=== PATIENT | male | born 1985 | race Caucasian/White ===

== ENCOUNTER 2020-06-27 10:40 | Inpatient (IN) | payer MEDICAID ==
[~2020-06-27] VITALS: Ht 175.3 cm; Wt 81.0 kg
[2020-06-27] VITALS (8 sets, daily range): BP systolic 104–134; BP diastolic 60–98
[2020-06-27] MEDS ORDERED: ZOLPIDEM TARTRATE 10 MG TABLET PO PRN (11:45)
[2020-06-27] MEDS ORDERED: HALOPERIDOL 5 MG TABLET PO PRN (11:45)
[2020-06-27] MEDS ORDERED: CloNIDine HCL 0.1 MG TABLET PO PRN (14:45)
[2020-06-27] MEDS ORDERED: MAG HYDROX/AL HYDROX/SIMETH ES 30 ML SUSPENSION UDCUP PO PRN (14:45)
[2020-06-27] MEDS ORDERED: IBUPROFEN 600 MG TABLET PO PRN (14:45)
[2020-06-27] MEDS ORDERED: HydrOXYzine PAMOATE 50 MG CAPSULE PO PRN (14:45)
[2020-06-27] MEDS ORDERED: INFLUENZA VIRUS VACCINE QVS 2020-21 (6MO+)/PF 60 MCG/0.5 ML SYRINGE IM ONE (16:00)
[2020-06-27] MEDS: CloNIDine HCL 0.1 MG TABLET PO SCH ×2 (16:55→21:12)
[2020-06-28] VITALS (7 sets, daily range): BP systolic 109–128; BP diastolic 66–73
[2020-06-28] MEDS: CloNIDine HCL 0.1 MG TABLET PO SCH ×4 (06:17→21:38)
[2020-06-28] MEDS ORDERED: ALBUTEROL SULFATE HFA 90 MCG/PUFF 8 GM INHALER IH PRN (08:45)
[2020-06-28] MEDS ORDERED: BACITRACIN 28 GM OINTMENT TP PRN (08:45)
[2020-06-28] MEDS ORDERED: MAGNESIUM HYDROXIDE SUSPENSION 30 ML UDCUP PO PRN (08:45)
[2020-06-28] MEDS ORDERED: PETROLATUM,WHITE 28 GM JELLY TP PRN (08:45)
[2020-06-28] MEDS ORDERED: DOCUSATE SODIUM 100 MG CAPSULE PO PRN (08:45)
[2020-06-28] MEDS ORDERED: OMEPRAZOLE 20 MG CAPSULE PO PRN (08:45)
[2020-06-28] MEDS ORDERED: ACETAMINOPHEN 325 MG TABLET PO PRN (08:45)
[2020-06-28] MEDS ORDERED: MAG HYDROX/AL HYDROX/SIMETH ES 30 ML SUSPENSION UDCUP PO PRN (08:45)
[2020-06-28] MEDS ORDERED: IBUPROFEN 600 MG TABLET PO PRN (08:45)
[2020-06-28] MEDS ORDERED: ONDANSETRON HCL 4 MG TABLET PO PRN (08:45)
[2020-06-28] MEDS ORDERED: CloNIDine HCL 0.1 MG TABLET PO PRN (08:45)
[2020-06-28] MEDS ORDERED: LOPERAMIDE HCL 2 MG CAPSULE PO PRN (08:45)
[2020-06-28] MEDS ORDERED: BENZOCAINE/MENTHOL LOZENGE PO PRN (08:45)
[2020-06-28] MEDS: LORazepam 2 MG TABLET PO PRN (12:32)
[2020-06-29 00:30] VITALS: BP 126/65
[2020-06-29] MEDS: CloNIDine HCL 0.1 MG TABLET PO SCH ×4 (06:05→21:39)
[2020-06-29 08:24] VITALS: BP 134/65
[2020-06-29] MEDS: LORazepam 2 MG TABLET PO PRN ×2 (10:16→14:17)
[2020-06-29 14:38] VITALS: BP 125/65
[2020-06-29 16:12] VITALS: BP 100/67
[2020-06-29] MEDS: OLANZapine 5 MG TABLET PO SCH (21:39)
[2020-06-30] MEDS: CloNIDine HCL 0.1 MG TABLET PO SCH ×4 (05:54→20:01)
[2020-06-30 06:49] VITALS: BP 121/71
[2020-06-30 08:28] VITALS: BP 106/62
[2020-06-30] MEDS: LORazepam 2 MG TABLET PO PRN ×2 (11:16→16:44)
[2020-06-30 12:50] VITALS: BP 127/72
[2020-06-30 14:40] VITALS: BP 126/72
[2020-06-30 16:10] VITALS: BP 108/63
[2020-06-30] MEDS: OLANZapine 5 MG TABLET PO SCH (20:01)
[2020-07-01 01:01] VITALS: BP 108/64
[2020-07-01] MEDS: CloNIDine HCL 0.1 MG TABLET PO SCH ×2 (06:01→12:44)
[2020-07-01 08:13] VITALS: BP 109/63
[2020-07-01] MEDS: LORazepam 2 MG TABLET PO PRN (12:51)
[2020-07-01] MEDS ORDERED: OLAN5TAB2 PO (13:20)
== END 2020-07-01 16:37 | disposition home or self-care (01) | DRG 750 ==
LOC: B2S 13:46 → UNDOADMIN 13:46 → B2S 14:36
PROVIDERS: ADMIT Psychiatry & Neurology Psychiatry; ATTEND Psychiatry & Neurology Psychiatry
DX: F25.9 Schizoaffective disorder, unspecified (principal); F10.10 Alcohol abuse, uncomplicated; F15.10 Other stimulant abuse, uncomplicated; F41.9 Anxiety disorder, unspecified; G47.00 Insomnia, unspecified; I10 Essential (primary) hypertension; Y90.9 Presence of alcohol in blood, level not specified
CPT/HCPCS: Z7610

== ENCOUNTER 2020-10-31 14:11 | Inpatient (IN) | payer MEDICAID, OTHER ==
[~2020-10-31] VITALS: Ht 175.3 cm; Wt 71.2 kg
[~2020-10-31 14:11] MED LIST: OLAN5TAB52 PO
[2020-10-31 16:47] LABS: BASOPHILS % (AUTO) 0.2 % (0.0-2.0); EOSINOPHILS % (AUTO) 1.7 % (1.0-6.0); HEMATOCRIT 36.9 % (41-53); HEMOGLOBIN 12.4 g/dL (13.5-17.5); LYMPHOCYTES # (AUTO) 1.6 K/uL (1.0-4.8); LYMPHOCYTES % (AUTO) 32.3 % (22.0-44.0); MEAN CORPUSCULAR HEMOGLOBIN 29.1 pg (26.0-34.0); MEAN CORPUSCULAR HGB CONC 33.7 G/dL (31.0-37.0); MEAN CORPUSCULAR VOLUME 87 fL (80-100); MONOCYTES # (AUTO) 0.6 K/uL (0.1-1.0); MONOCYTES % (AUTO) 12.2 % (2.0-9.0); NEUTROPHILS # (AUTO) 2.6 K/uL (1.8-7.7); NEUTROPHILS % (AUTO) 53.6 % (40.0-70.0); PLATELET COUNT (AUTO) 256 K/uL (150-450); RED BLOOD CELL COUNT(AUTO) 4.27 MIL/uL (4.50-5.90); RED CELL DISTRIBUTION WIDTH 15.4 % (11.5-14.5)
[2020-10-31 16:59] LABS: ANION GAP 4 mmol/L (8-16); CALCIUM, TOTAL 8.5 mg/dL (8.8-10.5); CARBON DIOXIDE 31 mmol/L (22-29); CHLORIDE 105 mmol/L (98-107); CREATININE 1.03 mg/dL (0.60-1.30); GLOMERULAR FILTR. RATE CALC > 60 mL/min (>60); GLUCOSE,RANDOM 96 mg/dL (70-110); POTASSIUM 4.1 mmol/L (3.5-5.1); SODIUM SERUM 140 mmol/L (136-145); UREA NITROGEN, BLOOD 10 mg/dL (7-18)
[2020-10-31 17:05] LABS: ALANINE AMINOTRANSFERASE 71 U/L (12-78); ALBUMIN 3.6 g/dL (3.4-5.0); ALKALINE PHOSPHATASE 65 U/L (46-116); ASPARTATE AMINOTRANSFERASE 44 U/L (15-37); BILIRUBIN,TOTAL 0.3 mg/dL (0.1-1.0); TOTAL PROTEIN, SERUM 6.9 g/dL (6.4-8.2)
[2020-10-31] MEDS ORDERED: HALOPERIDOL 5 MG TABLET PO PRN (17:45)
[2020-10-31] MEDS ORDERED: ZOLPIDEM TARTRATE 10 MG TABLET PO PRN (17:45)
[2020-10-31 19:31] LABS: COVID AG,FIA SOURCE NASOPHARYNGEAL
[2020-10-31 21:53] VITALS: BP 124/90
[2020-11-01] VITALS (9 sets, daily range): BP systolic 117–141; BP diastolic 70–89
[2020-11-01] MEDS: LORazepam 2 MG TABLET PO PRN (08:33)
[2020-11-01] MEDS ORDERED: CloNIDine HCL 0.1 MG TABLET PO PRN (09:45)
[2020-11-01] MEDS ORDERED: IBUPROFEN 600 MG TABLET PO PRN (09:45)
[2020-11-01] MEDS ORDERED: MAG HYDROX/AL HYDROX/SIMETH ES 30 ML SUSPENSION UDCUP PO PRN (09:45)
[2020-11-01] MEDS ORDERED: HydrOXYzine PAMOATE 50 MG CAPSULE PO PRN (09:45)
[2020-11-01] MEDS: ESCITALOPRAM OXALATE 10 MG TABLET PO SCH (11:22)
[2020-11-01] MEDS: CloNIDine HCL 0.1 MG TABLET PO SCH ×3 (11:57→21:47)
[2020-11-01] MEDS: RisperiDONE 2 MG TABLET PO SCH (16:31)
[2020-11-02] VITALS (7 sets, daily range): BP systolic 118–156; BP diastolic 79–86
[2020-11-02] MEDS: CloNIDine HCL 0.1 MG TABLET PO SCH ×4 (06:14→22:16)
[2020-11-02] MEDS: ESCITALOPRAM OXALATE 10 MG TABLET PO SCH (10:20)
[2020-11-02] MEDS: RisperiDONE 2 MG TABLET PO SCH ×3 (10:20→16:21)
[2020-11-02] MEDS: LORazepam 2 MG TABLET PO PRN (19:50)
[2020-11-03] VITALS (7 sets, daily range): BP systolic 129–156; BP diastolic 73–84
[2020-11-03] MEDS: CloNIDine HCL 0.1 MG TABLET PO SCH ×4 (05:52→21:50)
[2020-11-03] MEDS: RisperiDONE 2 MG TABLET PO SCH ×2 (09:11→16:10)
[2020-11-03] MEDS: ESCITALOPRAM OXALATE 10 MG TABLET PO SCH (09:11)
[2020-11-03] MEDS: LORazepam 2 MG TABLET PO PRN ×3 (09:20→18:18)
[2020-11-04 06:05] VITALS: BP 129/77
[2020-11-04] MEDS: CloNIDine HCL 0.1 MG TABLET PO SCH ×4 (06:09→21:44)
[2020-11-04] MEDS: LORazepam 2 MG TABLET PO PRN ×4 (06:10→18:55)
[2020-11-04] MEDS: RisperiDONE 2 MG TABLET PO SCH ×2 (08:21→16:41)
[2020-11-04] MEDS: ESCITALOPRAM OXALATE 10 MG TABLET PO SCH (08:21)
[2020-11-04 08:25] VITALS: BP 122/74
[2020-11-04] MEDS: GABAPENTIN 300 MG CAPSULE PO SCH ×3 (10:09→16:40)
[2020-11-04] MEDS ORDERED: DOCUSATE SODIUM 100 MG CAPSULE PO PRN (12:00)
[2020-11-04] MEDS ORDERED: MAGNESIUM HYDROXIDE SUSPENSION 30 ML UDCUP PO PRN (12:00)
[2020-11-04] MEDS ORDERED: IBUPROFEN 400 MG TABLET PO PRN (12:00)
[2020-11-04] MEDS ORDERED: ALBUTEROL SULFATE HFA 90 MCG/PUFF 8 GM INHALER IH PRN (12:00)
[2020-11-04] MEDS ORDERED: MAG HYDROX/AL HYDROX/SIMETH ES 30 ML SUSPENSION UDCUP PO PRN (12:00)
[2020-11-04] MEDS ORDERED: ONDANSETRON HCL 4 MG TABLET PO PRN (12:00)
[2020-11-04] MEDS ORDERED: CloNIDine HCL 0.1 MG TABLET PO PRN (12:00)
[2020-11-04] MEDS ORDERED: LOPERAMIDE HCL 2 MG CAPSULE PO PRN (12:00)
[2020-11-04] MEDS ORDERED: NICOTINE 14 MG/24 HOUR PATCH TD PRN (12:00)
[2020-11-04] MEDS ORDERED: GuaiFENesin/D-METHORPHAN [SUGAR-FREE] 200-20MG/10 ML SYRUP UDCUP PO PRN (12:00)
[2020-11-04] MEDS ORDERED: PETROLATUM,WHITE 28 GM JELLY TP PRN (12:00)
[2020-11-04] MEDS ORDERED: ACETAMINOPHEN 325 MG TABLET PO PRN (12:00)
[2020-11-04 12:06] VITALS: BP 142/81
[2020-11-04 16:00] VITALS: BP 124/80
[2020-11-05] MEDS: CloNIDine HCL 0.1 MG TABLET PO SCH ×4 (06:03→21:38)
[2020-11-05 06:16] VITALS: BP 131/84
[2020-11-05] MEDS: RisperiDONE 2 MG TABLET PO SCH ×2 (08:05→16:33)
[2020-11-05] MEDS: GABAPENTIN 300 MG CAPSULE PO SCH ×3 (08:05→16:33)
[2020-11-05] MEDS: ESCITALOPRAM OXALATE 10 MG TABLET PO SCH (08:05)
[2020-11-05] MEDS: LORazepam 2 MG TABLET PO PRN ×3 (08:07→17:03)
[2020-11-05 08:21] VITALS: BP 132/62
[2020-11-05 08:28] VITALS: BP 96/69
[2020-11-05 12:02] VITALS: BP 118/75
[2020-11-05 16:00] VITALS: BP 117/78
[2020-11-05 21:46] VITALS: BP 115/65
[2020-11-06] MEDS: CloNIDine HCL 0.1 MG TABLET PO SCH ×2 (06:09→12:28)
[2020-11-06 06:18] VITALS: BP 134/80
[2020-11-06] MEDS: GABAPENTIN 300 MG CAPSULE PO SCH ×2 (08:43→12:28)
[2020-11-06] MEDS: ESCITALOPRAM OXALATE 10 MG TABLET PO SCH (08:43)
[2020-11-06] MEDS: LORazepam 2 MG TABLET PO PRN (08:43)
[2020-11-06] MEDS: RisperiDONE 2 MG TABLET PO SCH (08:44)
[2020-11-06] MEDS ORDERED: RISP2TAB45 PO (10:00)
[2020-11-06] MEDS ORDERED: GABA-1181 PO (10:00)
[2020-11-06] MEDS ORDERED: ESCI-8 PO (10:00)
[2020-11-06 10:42] VITALS: BP 118/74
== END 2020-11-06 16:00 | disposition home or self-care (01) | DRG 750 ==
LOC: EMS 15:02 → 3EI 18:44
PROVIDERS: ADMIT Psychiatry & Neurology Child & Adolescent Psychiatry; ATTEND Psychiatry & Neurology Child & Adolescent Psychiatry
DX: F25.1 Schizoaffective disorder, depressive type (principal); R45.851 Suicidal ideations; Z59.0 Homelessness; F32.9 Major depressive disorder, single episode, unspecified; I10 Essential (primary) hypertension; F17.210 Nicotine dependence, cigarettes, uncomplicated; D64.9 Anemia, unspecified; Z20.822 Contact with and (suspected) exposure to COVID-19
CPT/HCPCS: 80053; 85025; 99285; G0480

== ENCOUNTER 2021-01-11 06:24 | Inpatient (IN) | payer MEDICAID, OTHER ==
[~2021-01-11] VITALS: Ht 175.3 cm; Wt 78.2 kg
[~2021-01-11 06:24] MED LIST changes: +ESCI-8 PO; +GABA-1181 PO; -OLAN5TAB52 PO; +RISP2TAB45 PO
[2021-01-11 06:51] LABS: BASOPHILS % (AUTO) 0.3 % (0.0-2.0); EOSINOPHILS % (AUTO) 5.8 % (1.0-6.0); HEMATOCRIT 40.5 % (41-53); HEMOGLOBIN 13.6 g/dL (13.5-17.5); LYMPHOCYTES # (AUTO) 1.8 K/uL (1.0-4.8); LYMPHOCYTES % (AUTO) 30.1 % (22.0-44.0); MEAN CORPUSCULAR HEMOGLOBIN 29.8 pg (26.0-34.0); MEAN CORPUSCULAR HGB CONC 33.6 G/dL (31.0-37.0); MEAN CORPUSCULAR VOLUME 89 fL (80-100); MONOCYTES # (AUTO) 0.6 K/uL (0.1-1.0); MONOCYTES % (AUTO) 10.6 % (2.0-9.0); NEUTROPHILS # (AUTO) 3.2 K/uL (1.8-7.7); NEUTROPHILS % (AUTO) 53.2 % (40.0-70.0); PLATELET COUNT (AUTO) 288 K/uL (150-450); RED BLOOD CELL COUNT(AUTO) 4.57 MIL/uL (4.50-5.90); RED CELL DISTRIBUTION WIDTH 13.7 % (11.5-14.5)
[2021-01-11 06:55] LABS: ANION GAP 5 mmol/L (8-16); CALCIUM, TOTAL 9.6 mg/dL (8.8-10.5); CARBON DIOXIDE 34 mmol/L (22-29); CHLORIDE 101 mmol/L (98-107); CREATININE 0.81 mg/dL (0.60-1.30); GLOMERULAR FILTR. RATE CALC > 60 mL/min (>60); GLUCOSE,RANDOM 75 mg/dL (70-110); POTASSIUM 4.1 mmol/L (3.5-5.1); SODIUM SERUM 140 mmol/L (136-145); UREA NITROGEN, BLOOD 17 mg/dL (7-18)
[2021-01-11 07:00] LABS: ALANINE AMINOTRANSFERASE 30 U/L (12-78); ALKALINE PHOSPHATASE 82 U/L (46-116); ASPARTATE AMINOTRANSFERASE 33 U/L (15-37); BILIRUBIN,TOTAL 0.6 mg/dL (0.1-1.0); TOTAL PROTEIN, SERUM 8.4 g/dL (6.4-8.2)
[2021-01-11 07:14] LABS: COVID AG,FIA SOURCE NASOPHARYNGEAL
[2021-01-11] MEDS ORDERED: HALOPERIDOL 5 MG TABLET PO PRN (10:30)
[2021-01-11 11:52] VITALS: BP 131/84
[2021-01-11] MEDS: LORazepam 2 MG TABLET PO PRN (18:54)
[2021-01-11] MEDS ORDERED: OMEPRAZOLE 20 MG CAPSULE PO PRN (20:15)
[2021-01-11] MEDS ORDERED: ACETAMINOPHEN 325 MG TABLET PO PRN (20:15)
[2021-01-11] MEDS ORDERED: PETROLATUM,WHITE 28 GM JELLY TP PRN (20:15)
[2021-01-11] MEDS ORDERED: BENZOCAINE/MENTHOL LOZENGE PO PRN (20:15)
[2021-01-11] MEDS ORDERED: CloNIDine HCL 0.1 MG TABLET PO PRN (20:15)
[2021-01-11] MEDS ORDERED: MAG HYDROX/AL HYDROX/SIMETH ES 30 ML SUSPENSION UDCUP PO PRN (20:15)
[2021-01-11] MEDS ORDERED: LOPERAMIDE HCL 2 MG CAPSULE PO PRN (20:15)
[2021-01-11] MEDS ORDERED: ONDANSETRON HCL 4 MG TABLET PO PRN (20:15)
[2021-01-11] MEDS ORDERED: ALBUTEROL SULFATE HFA 90 MCG/PUFF 8 GM INHALER IH PRN (20:15)
[2021-01-11] MEDS ORDERED: MAGNESIUM HYDROXIDE SUSPENSION 30 ML UDCUP PO PRN (20:15)
[2021-01-11] MEDS ORDERED: IBUPROFEN 600 MG TABLET PO PRN (20:15)
[2021-01-11] MEDS ORDERED: DOCUSATE SODIUM 100 MG CAPSULE PO PRN (20:15)
[2021-01-11] MEDS ORDERED: BACITRACIN 28 GM OINTMENT TP PRN (20:15)
[2021-01-11] MEDS: ZOLPIDEM TARTRATE 10 MG TABLET PO PRN (20:35)
[2021-01-11] MEDS: GABAPENTIN 300 MG CAPSULE PO SCH (21:25)
[2021-01-11] MEDS ORDERED: INFLUENZA VIRUS VACCINE QVS 2021-22 (6MO+)/PF 60 MCG/0.5 ML SYRINGE IM. ONE (21:45)
[2021-01-12 01:34] LABS: CHOL/HDL RATIO 2.8 (4.2-7.3); CHOLESTEROL 144 mg/dL (131-200); FREE T4 (FREE THYROXINE) 1.03 ng/dL (0.76-1.46); HDL CHOLESTEROL 51 mg/dL (40-60); LDL CHOL (CALC.) 89 mg/dL (0-130); TRIGLYCERIDES 19 mg/dL (15-150)
[2021-01-12] MEDS: GABAPENTIN 300 MG CAPSULE PO SCH ×3 (07:40→16:41)
[2021-01-12] MEDS: LORazepam 2 MG TABLET PO PRN ×2 (07:40→16:41)
[2021-01-12 08:00] VITALS: BP 146/77
[2021-01-12] MEDS ORDERED: GABAPENTIN 300 MG CAPSULE PO SCH (09:00)
[2021-01-12 16:12] VITALS: BP 128/80
[2021-01-12] MEDS: ZOLPIDEM TARTRATE 10 MG TABLET PO PRN (20:20)
[2021-01-13] MEDS: LORazepam 2 MG TABLET PO PRN ×3 (07:38→21:17)
[2021-01-13] MEDS: GABAPENTIN 300 MG CAPSULE PO SCH ×3 (08:21→16:16)
[2021-01-13 08:39] VITALS: BP 115/86
[2021-01-13 16:54] VITALS: BP 134/92
[2021-01-13 21:17] VITALS: BP 138/97
[2021-01-13] MEDS: ZOLPIDEM TARTRATE 10 MG TABLET PO PRN (22:32)
[2021-01-14 07:45] VITALS: BP 142/92
[2021-01-14] MEDS: GABAPENTIN 300 MG CAPSULE PO SCH ×3 (07:55→17:35)
[2021-01-14] MEDS: LORazepam 2 MG TABLET PO PRN ×3 (07:56→19:33)
[2021-01-14 10:00] VITALS: BP 140/88
[2021-01-14 13:15] VITALS: BP 134/80
[2021-01-14 14:14] VITALS: BP 130/78
[2021-01-14 17:15] VITALS: BP 126/81
[2021-01-14] MEDS: ZOLPIDEM TARTRATE 10 MG TABLET PO PRN (21:06)
[2021-01-15] MEDS: GABAPENTIN 300 MG CAPSULE PO SCH ×3 (08:26→16:20)
[2021-01-15] MEDS: LORazepam 2 MG TABLET PO PRN ×3 (08:28→20:45)
[2021-01-15 10:20] VITALS: BP 148/83
[2021-01-15 16:00] VITALS: BP 150/90
[2021-01-15] MEDS: ZOLPIDEM TARTRATE 10 MG TABLET PO PRN (20:12)
[2021-01-16 09:20] VITALS: BP 125/94
[2021-01-16] MEDS: GABAPENTIN 300 MG CAPSULE PO SCH ×3 (09:31→16:37)
[2021-01-16] MEDS: LORazepam 2 MG TABLET PO PRN ×3 (09:32→20:41)
[2021-01-16 16:00] VITALS: BP 123/71
[2021-01-16 16:32] VITALS: BP 123/71
[2021-01-16 16:38] VITALS: BP 123/71
[2021-01-16 20:41] VITALS: BP 122/69
[2021-01-16] MEDS: ZOLPIDEM TARTRATE 10 MG TABLET PO PRN (21:34)
[2021-01-17 08:41] VITALS: BP 124/77
[2021-01-17] MEDS: GABAPENTIN 300 MG CAPSULE PO SCH ×3 (08:49→16:29)
[2021-01-17] MEDS: LORazepam 2 MG TABLET PO PRN ×3 (08:51→17:53)
[2021-01-17 16:00] VITALS: BP 117/76
[2021-01-17] MEDS: ZOLPIDEM TARTRATE 10 MG TABLET PO PRN (20:04)
[2021-01-17 22:13] LABS: COVID AG,FIA SOURCE NASAL SWAB
[2021-01-18] MEDS: GABAPENTIN 300 MG CAPSULE PO SCH ×3 (08:11→17:58)
[2021-01-18] MEDS: LORazepam 2 MG TABLET PO PRN ×4 (08:18→21:46)
[2021-01-18 08:34] VITALS: BP 143/73
[2021-01-18 16:22] VITALS: BP 123/83
[2021-01-18] MEDS: ZOLPIDEM TARTRATE 10 MG TABLET PO PRN (21:31)
[2021-01-19] MEDS: LORazepam 2 MG TABLET PO PRN ×2 (05:32→17:12)
[2021-01-19 05:33] VITALS: BP 132/89
[2021-01-19] MEDS: GABAPENTIN 300 MG CAPSULE PO SCH ×3 (09:12→17:12)
[2021-01-19 16:00] VITALS: BP 128/85
[2021-01-19] MEDS: ZOLPIDEM TARTRATE 10 MG TABLET PO PRN (20:58)
[2021-01-20 06:45] VITALS: BP 133/84
[2021-01-20] MEDS: LORazepam 2 MG TABLET PO PRN ×3 (06:50→21:23)
[2021-01-20] MEDS: GABAPENTIN 300 MG CAPSULE PO SCH ×3 (08:24→17:18)
[2021-01-20 09:00] VITALS: BP 137/89
[2021-01-20 16:00] VITALS: BP 121/70
[2021-01-20] MEDS: ZOLPIDEM TARTRATE 10 MG TABLET PO PRN (20:58)
[2021-01-21] MEDS: GABAPENTIN 300 MG CAPSULE PO SCH ×3 (08:18→17:00)
[2021-01-21 09:00] VITALS: BP 129/79
[2021-01-21 16:00] VITALS: BP 124/76
[2021-01-21] MEDS: ZOLPIDEM TARTRATE 10 MG TABLET PO PRN (20:07)
[2021-01-22 08:00] VITALS: BP 129/76
[2021-01-22] MEDS: GABAPENTIN 300 MG CAPSULE PO SCH ×3 (08:12→17:06)
[2021-01-22 16:00] VITALS: BP 147/92
[2021-01-22 16:38] LABS: COVID AG,FIA SOURCE NASOPHARYNGEAL
[2021-01-22] MEDS: ZOLPIDEM TARTRATE 10 MG TABLET PO PRN (20:28)
[2021-01-23 08:00] VITALS: BP 135/87
[2021-01-23] MEDS: GABAPENTIN 300 MG CAPSULE PO SCH (08:44)
== END 2021-01-23 10:25 | disposition home or self-care (01) | DRG 754 ==
LOC: EMS 06:30 → 3EC 14:31 → 3EI 01-13 12:40
PROVIDERS: ADMIT Psychiatry & Neurology Psychiatry; ATTEND Psychiatry & Neurology Psychiatry
DX: F32.9 Major depressive disorder, single episode, unspecified (principal); R45.851 Suicidal ideations; Z20.822 Contact with and (suspected) exposure to COVID-19; F20.9 Schizophrenia, unspecified; F17.200 Nicotine dependence, unspecified, uncomplicated; F41.9 Anxiety disorder, unspecified; G47.00 Insomnia, unspecified; K59.00 Constipation, unspecified; F19.10 Other psychoactive substance abuse, uncomplicated; Z59.0 Homelessness; Z71.51 Drug abuse counseling and surveillance of drug abuser; Z71.6 Tobacco abuse counseling
CPT/HCPCS: 80053; 80061; 84439; 84443; 85025; 99285; G0480